=== PATIENT | male | born 2000 | race Caucasian/White ===

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

== ENCOUNTER 2019-09-02 20:59 | Emergency (ER) | payer SELFPAY ==
[~2019-09-02] VITALS: Ht 172.7 cm; Wt 113.4 kg
[2019-09-02 21:00] VITALS: BP 139/74
--- NOTE | 2019-09-02 21:10 | NUR ---
Pt ambulated to bed
--- NOTE | 2019-09-02 21:10 | NUR ---
19 Y/O MALE C/O RIGHT LOWER ABD PAIN X 2 DAYS , 9/10 PAIN, THAT GETS WORSE POST EATING. DENIES TRAUMA. PT STATES PAIN IS POKING AND INTERMITTENT AND RADIATES FROM THE FRONT TO LOWER RIGHT BACK . PT STATES HAS BEEN DRINKING MORE WATER TO SEE IF IF HELPS. DENIES N/V/D. DENIES AND CHANGES WITH GI/. VSS. BED LOW AND LOCKED, 1 SIDERAIL UP . SKIN IS PINK/WARM/DRY; AAOX4 WITH EVEN AND STEADY GAIT; PT DENIES ANY FEVER, CP, SOB, OR COUGH AT THIS TIME; PATIENT POSITIONED FOR COMFORT; HOB ELEVATED MEDICAL HX: DENIES NKA
--- NOTE | 2019-09-02 21:20 | NUR ---
AT BEDSIDE EXAMING PT
[2019-09-02 21:42] LABS: APPEARANCE,URINE CLEAR (CLEAR); BILIRUBIN,URINE NEGATIVE (NEGATIVE); BLOOD, URINE NEGATIVE (NEGATIVE); COLOR,URINE YELLOW (YELLOW); LEUKOCYTE ESTERASE ,URINE NEGATIVE (NEGATIVE); NITRITE, URINE NEGATIVE (NEGATIVE); UGLUCOSE NEGATIVE (NEGATIVE)
[2019-09-02 22:06] LABS: BASOPHILS # (AUTO) 0.1 K/uL (0.00-0.22); BASOPHILS % (AUTO) 0.8 % (0.0-2.0); EOSINOPHILS # (AUTO) 0.3 K/uL (0-0.4); EOSINOPHILS % (AUTO) 4.4 % (0.0-4.0); HEMATOCRIT 44.7 % (36-52); LYMPHOCYTES # (AUTO) 1.5 K/uL (2.0-11.5); LYMPHOCYTES % (AUTO) 20.1 % (20.5-51.1); MEAN CORPUSCULAR HEMOGLOBIN 28 pg (27-31); MEAN CORPUSCULAR HGB CONC 34 g/dL (33-37); MONOCYTES # (AUTO) 0.7 K/uL (0.8-1.0); NEUTROPHILS # (AUTO) 4.7 K/uL (1.8-7.7); NEUTROPHILS % (AUTO) 64.7 % (42.2-75.2); PLATELET COUNT (AUTO) 190 K/uL (140-450); RED BLOOD CELL COUNT(AUTO) 5.39 MIL/uL (4.20-6.10); RED CELL DISTRIBUTION WIDTH 13.6 % (11.6-13.7); WHITE BLOOD COUNT (AUTO) 7.3 K/uL (4.8-10.8)
[2019-09-02 22:27] LABS: ALBUMIN 4.1 g/dL (3.4-5.0); ANION GAP 11.4 (8-16); CARBON DIOXIDE 29.3 mmol/L (21-32); CREATININE 0.9 mg/dL (0.6-1.3); POTASSIUM 3.7 mmol/L (3.5-5.1); TOTAL BILIRUBIN 0.3 mg/dL (0.0-1.0)
--- NOTE | 2019-09-02 22:49 | NUR ---
PT TAKEN TO CT VIA WHEELCHAIR
--- NOTE | 2019-09-02 23:10 | NUR ---
* PT RETURNED FROM CT VIA WHEELCHAIR. STABLE. RESTING IN BED IN POSITION OF COMFORT, BED LOW AND LOCKED AND 1 SIDERAIL UP. WILL CONTINUE TO MONITOR
--- NOTE | 2019-09-02 23:10 | NUR ---
Goran jane in EDM - 09/02/19 at 2339 by MEDALBERTO PT RETURNED FROM CT VIA AMBULANCE. STABLE. RESTING IN BED IN POSITION OF COMFORT, BED LOW AND LOCKED AND 1 SIDERAIL UP. WILL CONTINUE TO MONITOR
--- NOTE | 2019-09-02 23:27 | NUR ---
PT RESTING IN BED IN POSITION OF COMFORT. 1 SIDE RAIL UP. VSS. RR EVEN AND UNLABORED. PT STATES PAIN ONLY FELT WHEN COMPRESSES ABD. BED LOW AND LOCKED. WILL CONTINUE TO MONITOR.
[2019-09-03] MEDS ORDERED: ACETAMINOPHEN EXTRA STRENGTH 500 MG TAB PO ONE (00:50)
[2019-09-03 00:57] VITALS: BP 122/74
--- NOTE | 2019-09-03 00:57 | NUR ---
Pt requested for pain medication before leaving. Dr Escobedo made aware, verbal order for 1000mg Tylenol PO at this time. Pt left before receiving tylenol PO, Dr Escobedo made aware.
--- NOTE | 2019-09-03 00:57 | NUR ---
Patient discharged with v/s stable. Written and verbal after care instructions given and explained. Patient verbalized understanding. Ambulatory with steady gait. All questions addressed prior to discharge. Advised to follow up with PMD.
== END 2019-09-03 00:57 | disposition home or self-care (01) ==
LOC: MED 20:59
DX: I88.0 Nonspecific mesenteric lymphadenitis (principal)
CPT/HCPCS: 36415; 74177; 80053; 81003; 83690; 85025; 99285; Q9967